=== PATIENT | male | born 1950 | race Caucasian/White ===

== ENCOUNTER 2016-07-09 21:26 | Observation (INO) | payer OTHER, MEDICARE ==
--- NOTE | 2016-07-09 21:37 | CPEKG ---
Heart Rate: 59 RR Interval: 1017 QRSD Interval: 108 QT Interval: 480 QTC Interval: 476 QRS [place]: 23 T Wave [place]: 17 EKG Severity - ABNORMAL ECG - EKG Impression: ATRIAL FIBRILLATION EKG Impression: BORDERLINE PROLONGED QT INTERVAL Electronically Signed By: Erick Patel 10-Jul-2016 00:08:31
[2016-07-09] MEDS ORDERED: NS 1,000 ML IV ONE ×2 (21:44→21:52)
--- NOTE | 2016-07-09 21:46 | EDPHY ---
H & P Time Seen by Provider: 07/09/16 21:44 HPI/ROS: Chief complaint. Syncope HPI. 65-year-old male here by EMS after having 2 syncopal episodes tonight. Patient just arrived from [place]. He was at a concert or performance felt lightheaded got up passed out. He then shortly thereafter had a never another syncopal episode. No chest discomfort or shortness of breath. He has low back pain. He is sweaty and diaphoretic and was nauseated. He really could not get up or stand. No similar symptoms previously ROS Constitutional. Generalized weakness Eyes. no problems with vision ENT. no sore throat, no nasal drainage Cardiovascular. no chest pain Respiratory. no shortness of breath, no cough Abdominal. no abdominal pain, no nausea/vomiting, no diarrhea . no problems urinating MS. Low back pain Skin. no rash Lymph. no swollen glands Neuro. Syncope Past Medical/Surgical History: Hypertension and pre atrial fibrillation Social History: , nonsmoker, no alcohol Physical Exam: General Appearance: Alert ill-appearing male with initial heart rate of 60 and blood pressure 99/54 Eyes: Pupils equal and round no pallor or injection. ENT, Mouth: Mucous membranes are moist. Respiratory: There are no retractions, lungs are clear to auscultation. Cardiovascular: Irregularly irregular rate and rhythm. Gastrointestinal: Abdomen is soft and nontender, no masses, bowel sounds normal. Neurological: Awake and alert, sensory and motor exams grossly normal. Skin: Pale and diaphoretic Musculoskeletal: Neck is supple nontender. Extremities symmetrical, full range of motion. Psychiatric: Patient is oriented X 3, there is no agitation. Constitutional: Initial Vital Signs Temperature (C) 36.5 C 07/09/16 21:26 Heart Rate 60 07/09/16 21:26 Respiratory Rate 11 L 07/09/16 21:26 Blood Pressure 99/54 L 07/09/16 21:26 O2 Sat (%) 90 L 07/09/16 21:26 O2 Delivery Mode Nasal Cannula O2 (L/minute) 2 Allergies/Adverse Reactions: No Known Allergies Allergy (Verified 07/09/16 21:59) Home Medications: Medication Instructions Recorded ENALAPRIL MALEATE 07/09/16 Medical Decision Making - Diagnostics EKG Interpretation: EKG interpreted by me shows atrial fibrillation with left axis deviation. QRS is otherwise normal there is no significant ST elevation or depression. The ventricular response is 59. We have no old EKGs for comparison Imaging Results: Imaging Impressions Chest X-Ray 07/09/16 21:44 Impression: Previous pulmonary granulomatous disease. No acute cardiopulmonary features. Chest x-ray interpreted by me is normal CT angiogram shows no evidence of pulmonary embolus. CT abdomen with IV contrast shows a normal aorta. There is diverticular disease but no evidence of diverticulitis Procedures: IV normal saline with 2 L given. roller mill tender. I-STAT revealing a creatinine 1.2 ED Course/Re-evaluation: After 2 L of fluid patient is feeling much better. His ventricular response is about 85. Blood pressure is now 144/89 Re-evaluation at 11:25 p.m.. Patient and family and I discussed imaging lab results. We discussed treatment plan. We discussed new atrial fibrillation. I recommended admission and they expressed understanding and agreement I consulted and discussed the case with Dr. Baires who sees the patient in the emergency department Differential Diagnosis: Patient is new in new onset atrial fibrillation. I considered acute coronary syndrome pulmonary embolus, abdominal aortic aneurysm as causes of his syncope. Likely this is arrival at altitude and he does tell me now that he did some marijuana this morning. May also be related to dehydration and the new AFib - Data Points Laboratory Results: Laboratory Results 07/09/16 21:45 07/09/16 21:45 07/09/16 07/09/16 07/09/16 21:53 21:45 21:45 WBC RBC Hgb POC Hgb 14.3 gm/dL L gm/dL (14.5-17.3) Hct POC Hct 42 % L % (42.8-50.6) MCV MCH MCHC RDW Plt Count MPV Neut % (Auto) Lymph % (Auto) Luna % (Auto) Eos % (Auto) Baso % (Auto) Nucleat RBC Rel Count Absolute Neuts (auto) Absolute Lymphs (auto) Absolute Monos (auto) Absolute Eos (auto) Absolute Basos (auto) Absolute Nucleated RBC Immature Gran % Immature Gran # PT INR APTT D-Dimer POC Sodium 143 mEq/L mEq/L (134-144) Sodium 138 mEq/L mEq/L (134-144) POC Potassium 3.1 mEq/L L mEq/L (3.3-5.0) Potassium 3.1 mEq/L L mEq/L (3.5-5.2) POC Chloride 103 mEq/L mEq/L (96-108) Chloride 103 mEq/L mEq/L (97-110) Carbon Dioxide 24 mEq/l mEq/l (22-31) Anion Gap 11 mEq/L mEq/L (8-16) POC BUN 21 mg/dL mg/dL (7-23) BUN 21 mg/dL mg/dL (7-23) Creatinine 1.1 mg/dL mg/dL (0.7-1.3) POC Creatinine 1.2 mg/dL mg/dL (0.8-1.5) Estimated GFR > 60 Glucose 155 mg/dL H mg/dL (70-100) POC Glucose 161 mg/dL H mg/dL (70-100) Calcium 9.1 mg/dL mg/dL (8.5-10.4) Magnesium 2.3 mg/dL mg/dL (1.6-2.3) Troponin I < 0.012 ng/mL ng/mL (0-0.034) NT-Pro-B Natriuret Pep 120 pg/mL pg/mL (0-125) 07/09/16 07/09/16 21:45 21:45 WBC 11.55 10^3/uL H 10^3/uL (3.80-9.50) RBC 4.97 10^6/uL 10^6/uL (4.40-6.38) Hgb 15.1 g/dL g/dL (13.7-17.5) POC Hgb Hct 43.9 % % (40.0-51.0) POC Hct MCV 88.3 fL fL (81.5-99.8) MCH 30.4 pg pg (27.9-34.1) MCHC 34.4 g/dL g/dL (32.4-36.7) RDW 12.7 % % (11.5-15.2) Plt Count 280 10^3/uL 10^3/uL (150-400) MPV 9.8 fL fL (8.7-11.7) Neut % (Auto) 48.8 % % (39.3-74.2) Lymph % (Auto) 40.0 % % (15.0-45.0) Luna % (Auto) 8.1 % % (4.5-13.0) Eos % (Auto) 2.5 % % (0.6-7.6) Baso % (Auto) 0.3 % % (0.3-1.7) Nucleat RBC Rel Count 0.0 % % (0.0-0.2) Absolute Neuts (auto) 5.63 10^3/uL 10^3/uL (1.70-6.50) Absolute Lymphs (auto) 4.62 10^3/uL H 10^3/uL (1.00-3.00) Absolute Monos (auto) 0.94 10^3/uL H 10^3/uL (0.30-0.80) Absolute Eos (auto) 0.29 10^3/uL 10^3/uL (0.03-0.40) Absolute Basos (auto) 0.03 10^3/uL 10^3/uL (0.02-0.10) Absolute Nucleated RBC 0.00 10^3/uL 10^3/uL (0-0.01) Immature Gran % 0.3 % % (0.0-1.1) Immature Gran # 0.04 10^3/uL 10^3/uL (0.00-0.10) PT 13.5 SEC SEC (12.0-15.0) INR 1.04 (0.83-1.16) APTT 27.0 SEC SEC (23.0-38.0) D-Dimer 0.28 ug/mLFEU ug/mLFEU (0.00-0.50) POC Sodium Sodium POC Potassium Potassium POC Chloride Chloride Carbon Dioxide Anion Gap POC BUN BUN Creatinine POC Creatinine Estimated GFR Glucose POC Glucose Calcium Magnesium Troponin I NT-Pro-B Natriuret Pep Medications Given: Discontinued Medications Sodium Chloride (Ns) 1,000 mls @ 0 mls/hr IV ONCE ONE PRN Reason: Wide Open Stop: 07/09/16 21:45 Last Admin: 07/09/16 21:58 Dose: 1,000 mls Sodium Chloride (Ns) 1,000 mls @ 0 mls/hr IV ONCE ONE PRN Reason: Wide Open Stop: 07/09/16 21:53 Last Admin: 07/09/16 22:05 Dose: 1,000 mls Point of Care Test Results: 07/09/16 21:53 POC Sodium 143 POC Potassium 3.1 L POC Chloride 103 POC BUN 21 POC Creatinine 1.2 POC Glucose 161 H Departure - Departure Disposition: [facility] Inpatient Acute Clinical Impression: Atrial fibrillation Qualifiers: Atrial fibrillation type: unspecified Qualified Code(s): I48.91 - Unspecified atrial fibrillation Syncope Qualifiers: Syncope type: unspecified Qualified Code(s): R55 - Syncope and collapse Condition: Fair Referrals: Patient,NotPresent [Unknown] - As per Instructions
[2016-07-09 21:49] LABS: % IMMATURE GRANULYOCYTES 0.3 % (0.0-1.1); ABSOLUTE IMMATURE GRANULOCYTES 0.04 10^3/uL (0.00-0.10); ADD DIFF? NO; ADD MORPH? NO; ADD SCAN? NO; ATYPICAL LYMPHOCYTE FLAG 0 (0-99); FRAGMENT RBC FLAG 0 (0-99); HEMATOCRIT 43.9 % (40.0-51.0); HEMOGLOBIN 15.1 g/dL (13.7-17.5); LEFT SHIFT FLG 0 (0-99); LIPEMIA HEMOLYSIS FLAG 90 (0-99); MEAN CELL HEMOGLOBIN 30.4 pg (27.9-34.1); MEAN CELL HEMOGLOBIN CONCENTR. 34.4 g/dL (32.4-36.7); MEAN CELL VOLUME 88.3 fL (81.5-99.8); MEAN PLATELET VOLUME 9.8 fL (8.7-11.7); PLATELET CLUMPS FLAG 10 (0-99); PLATELET COUNT 280 10^3/uL (150-400); RED BLOOD CELL COUNT 4.97 10^6/uL (4.40-6.38); RED CELL DISTRIBUTION WIDTH 12.7 % (11.5-15.2)
[2016-07-09] MEDS ORDERED: IOPAMIDOL (ISOVUE 370) 100 ML BTL IV ONE ×2 (21:49→22:19)
[2016-07-09 22:00] LABS: INR 1.04 (0.83-1.16); PROTIME(PATIENT) 13.5 SEC (12.0-15.0)
[2016-07-09 22:05] LABS: ANION GAP 11 mEq/L (8-16); CALCIUM 9.1 mg/dL (8.5-10.4); CARBON DIOXIDE 24 mEq/l (22-31); CHLORIDE 103 mEq/L (97-110); CREATININE 1.1 mg/dL (0.7-1.3); GLOMERULAR FILTRATION RATE > 60; GLUCOSE 155 mg/dL (70-100); POTASSIUM 3.1 mEq/L (3.5-5.2); SODIUM 138 mEq/L (134-144)
[2016-07-09] MEDS ORDERED: ONDANSETRON 4 MG/2 ML VIAL ONE (22:06)
[2016-07-09 22:17] LABS: TROPONIN I < 0.012 ng/mL (0-0.034)
[2016-07-09] MEDS ORDERED: oxyCODONE IR 5 MG TAB PO PRN (23:26)
[2016-07-09] MEDS ORDERED: ONDANSETRON 4 MG/2 ML VIAL IVP PRN (23:26)
[2016-07-09] MEDS ORDERED: ONDANSETRON DISINTEGRATING 4 MG TAB PO PRN (23:26)
[2016-07-09] MEDS ORDERED: ACETAMINOPHEN 325 MG TAB PO PRN (23:26)
[2016-07-09] MEDS ORDERED: NS 1,000 ML IV SCH (23:30)
[2016-07-10] MEDS ORDERED: POTASSIUM CL 20 MEQ TAB PO ONE (00:03)
--- NOTE | 2016-07-10 04:28 | PDGENHP ---
History and Physical - Chief Complaint syncope - History of Present Illness This patient was seen and evaluated on 07/09/2016. Patient is a 65-year-old male with a history of GERD who presents to the ED after a syncopal episode. patient is on vacation in [place] from [place], arrived on 07/08. He reports he did not eat or drink much on his day of travel and felt a little fatigued when he woke up this morning. He did not feel particularly short of breath and denied headache, chest pain or palpitations. This evening, he and his were at a show when he reported that he felt suddenly very hot and nauseous. He got up from his seat and when walking towards the restroom, he syncopized. This was witnessed by his , states LOC lasted seconds, and when he regained consciousness he was fully aware of his surroundings. EMS was called, and while waiting he tried to sit up and again syncopized. When EMS arrived he was noted to be somewhat hypotensive (SBP in 80- 90s), with rhythm strip showing afib. Patient denies any recent fevers, chills, cough, chest pain, palpitations, shortness of breath, vomiting, diarrhea or dysuria. He did report smoking marijuana earlier in the day today, which is something he occasionally does. He denies any significant alcohol use. He does also report having had 2 previous episodes of vasovagal syncope in his life, once in his early 20s and once about 10 years ago. Both episodes had a very similar presentation to the episode he experienced this evening. He states he's had an extensive cardiac work up done in the past, but it has been largely unrevealing. Last TTE or stress test was over 1 year ago. On arrival to the ED, patient was afebrile, slightly hypotensive, saturating at 90% on room air. Labs revealed mild leukocytosis, bmp showed hypokalemia. EKG demonstrated a slow afib, CXR was unremarkable. Given his history of recent air travel, CT chest was also obtained and negative for pulmonary embolism. He was given IVF resuscitation and admitted to the hospitalist service. History Information - Allergies/Home Medication List Allergies/Adverse Reactions: No Known Allergies Allergy (Verified 07/09/16 21:59) Home Medications: ENALAPRIL MALEATE 07/09/16 [Last Taken Unknown] I have personally reviewed and updated: family history, medical history, social history, surgical history - Past Medical History Additional medical history: HTN --> patient denies diagnosis of hypertension, states ACEI was initiated by pmd for renal protection due to family history of renal disease. GERD. IBS - Surgical History Additional surgical history: wrist - Family History Additional family history: renal disease - Social History Smoking Status: Never smoked Alcohol Use: None Drug Use: Marijuana Additional social history: Patient lives in [place], visiting [place] for vacation. Physical Exam Temp Pulse Resp BP Pulse Ox 36.5 C 92 20 147/87 H 95 07/09/16 21:26 07/10/16 00:58 07/10/16 00:58 07/10/16 00:58 07/10/16 00:58 O2 (L/minute) 2 Constitutional: no apparent distress, appears nourished, not in pain, other ( fatigued) Eyes: PERRL, anicteric sclera, EOMI Ears, Nose, Mouth, Throat: moist mucous membranes, hearing normal, ears appear normal, no oral mucosal ulcers Cardiovascular: regular rate and rhythym, no murmur, rub, or gallop, pulses symmetric bilaterally, No JVD, No edema Peripheral Pulses: 2+: dorsalis-pedis (R), dorsalis-pedis (L) Respiratory: no respiratory distress, no rales or rhonchi, clear to auscultation Gastrointestinal: normoactive bowel sounds, soft, non-tender abdomen, no palpable masses Genitourinary: no bladder fullness, no bladder tenderness Skin: warm, normal color, no rashes or abrasions, no fluctuance, no induration, No mottled Musculoskeletal: full muscle strength, no muscle tenderness, normal joint ROM, no joint effusions Neurologic: AAOx3, sensation intact bilaterally, CN II-XII Intact, No weakness, No numbness, No facial droop Psychiatric: interacting appropriately, not anxious, not encephalopathic, thought process linear Lab Data & Imaging Review 07/09/16 21:45 07/09/16 21:45 WBC 11.55 10^3/uL (3.80-9.50) H 07/09/16 21:45 RBC 4.97 10^6/uL (4.40-6.38) 07/09/16 21:45 Hgb 15.1 g/dL (13.7-17.5) 07/09/16 21:45 POC Hgb 14.3 gm/dL (14.5-17.3) L 07/09/16 21:53 Hct 43.9 % (40.0-51.0) 07/09/16 21:45 POC Hct 42 % (42.8-50.6) L 07/09/16 21:53 MCV 88.3 fL (81.5-99.8) 07/09/16 21:45 MCH 30.4 pg (27.9-34.1) 07/09/16 21:45 MCHC 34.4 g/dL (32.4-36.7) 07/09/16 21:45 RDW 12.7 % (11.5-15.2) 07/09/16 21:45 Plt Count 280 10^3/uL (150-400) 07/09/16 21:45 MPV 9.8 fL (8.7-11.7) 07/09/16 21:45 Neut % (Auto) 48.8 % (39.3-74.2) 07/09/16 21:45 Lymph % (Auto) 40.0 % (15.0-45.0) 07/09/16 21:45 [place] % (Auto) 8.1 % (4.5-13.0) 07/09/16 21:45 Eos % (Auto) 2.5 % (0.6-7.6) 07/09/16 21:45 Baso % (Auto) 0.3 % (0.3-1.7) 07/09/16 21:45 Nucleat RBC Rel Count 0.0 % (0.0-0.2) 07/09/16 21:45 Absolute Neuts (auto) 5.63 10^3/uL (1.70-6.50) 07/09/16 21:45 Absolute Lymphs (auto) 4.62 10^3/uL (1.00-3.00) H 07/09/16 21:45 Absolute Monos (auto) 0.94 10^3/uL (0.30-0.80) H 07/09/16 21:45 Absolute Eos (auto) 0.29 10^3/uL (0.03-0.40) 07/09/16 21:45 Absolute Basos (auto) 0.03 10^3/uL (0.02-0.10) 07/09/16 21:45 Absolute Nucleated RBC 0.00 10^3/uL (0-0.01) 07/09/16 21:45 Immature Gran % 0.3 % (0.0-1.1) 07/09/16 21:45 Immature Gran # 0.04 10^3/uL (0.00-0.10) 07/09/16 21:45 PT 13.5 SEC (12.0-15.0) 07/09/16 21:45 INR 1.04 (0.83-1.16) 07/09/16 21:45 APTT 27.0 SEC (23.0-38.0) 07/09/16 21:45 D-Dimer 0.28 ug/mLFEU (0.00-0.50) 07/09/16 21:45 POC Sodium 143 mEq/L (134-144) 07/09/16 21:53 Sodium 138 mEq/L (134-144) 07/09/16 21:45 POC Potassium 3.1 mEq/L (3.3-5.0) L 07/09/16 21:53 Potassium 3.1 mEq/L (3.5-5.2) L 07/09/16 21:45 POC Chloride 103 mEq/L (96-108) 07/09/16 21:53 Chloride 103 mEq/L (97-110) 07/09/16 21:45 Carbon Dioxide 24 mEq/l (22-31) 07/09/16 21:45 Anion Gap 11 mEq/L (8-16) 07/09/16 21:45 POC BUN 21 mg/dL (7-23) 07/09/16 21:53 BUN 21 mg/dL (7-23) 07/09/16 21:45 Creatinine 1.1 mg/dL (0.7-1.3) 07/09/16 21:45 POC Creatinine 1.2 mg/dL (0.8-1.5) 07/09/16 21:53 Estimated GFR > 60 07/09/16 21:45 Glucose 155 mg/dL (70-100) H 07/09/16 21:45 POC Glucose 161 mg/dL (70-100) H 07/09/16 21:53 Calcium 9.1 mg/dL (8.5-10.4) 07/09/16 21:45 Magnesium 2.3 mg/dL (1.6-2.3) 07/09/16 21:45 Troponin I < 0.012 ng/mL (0-0.034) 07/09/16 21:45 NT-Pro-B Natriuret Pep 120 pg/mL (0-125) 07/09/16 21:45 Visualized and Interpreted Chest x-ray results: Yes Chest X-Ray results: no infiltrate, normal Visualized and Interpreted imaging results: Yes Interpretation: CT chest/abd/pelvis: no pulm embolism, diverticula without inflammation Visualized and Interpreted EKG results: Yes EKG additional interpertation: afib at 59 bpm, no obvious st/twave abnormalities Assessment & Plan Assessment: patient is a 65-year-old male with a history of hypertension, GERD who presents to the ED after syncopal episode. ED evaluation reveals evidence of dehydration and his labs, hypokalemia and new onset AFib. Plan: # syncope Patient's description of the event sounds consistent with vasovagal syncope. However EKG revealed atrial fibrillation, which patient states is a new diagnosis for him. He does also feel he has been maintaining adequate p.o. intake over the past 24 hours, given he was traveling, so dehydration/ orthostasis may also be contributing. Initial troponin and EKG are not concerning for ischemia, will continue to trend both to rule out ACS. Will also continue IV fluid hydration, monitor electrolytes and check TTE in a.m. Patient is nonfocal on exam, no indication for head imaging at this time. # Atrial fibrillation patient is reporting that his health outreach worker has 1 time told him he had "pre AFib " but he was never started on any medicines for this. Current AFib may be the result of an acute dehydration and electrolyte abnormalities, or underlying paroxysmal/chronic AFib. His chads Vasc score is 1 given his age. He reports only taking enalapril for renal protection (positive family history), not for a diagnosis of hypertension. Will continue to monitor on telemetry, initiate aspirin and correct electrolytes. # hypokalemia May be contributing to arrhythmia, will place on replacement protocol. # dispo: admit to observation status for syncope # gen: cardiac diet DVT ppx; low risk Full code
[2016-07-10 05:08] LABS: % IMMATURE GRANULYOCYTES 0.4 % (0.0-1.1); ABSOLUTE IMMATURE GRANULOCYTES 0.03 10^3/uL (0.00-0.10); ADD DIFF? NO; ADD MORPH? NO; ADD SCAN? NO; ATYPICAL LYMPHOCYTE FLAG 0 (0-99); FRAGMENT RBC FLAG 0 (0-99); HEMATOCRIT 42.6 % (40.0-51.0); HEMOGLOBIN 14.7 g/dL (13.7-17.5); LEFT SHIFT FLG 10 (0-99); LIPEMIA HEMOLYSIS FLAG 90 (0-99); MEAN CELL HEMOGLOBIN 30.8 pg (27.9-34.1); MEAN CELL HEMOGLOBIN CONCENTR. 34.5 g/dL (32.4-36.7); MEAN CELL VOLUME 89.3 fL (81.5-99.8); MEAN PLATELET VOLUME 9.6 fL (8.7-11.7); PLATELET CLUMPS FLAG 0 (0-99); PLATELET COUNT 224 10^3/uL (150-400); RED BLOOD CELL COUNT 4.77 10^6/uL (4.40-6.38); RED CELL DISTRIBUTION WIDTH 12.6 % (11.5-15.2)
[2016-07-10 05:17] LABS: INR 1.07 (0.83-1.16); PROTIME(PATIENT) 13.8 SEC (12.0-15.0)
[2016-07-10 05:18] LABS: APTT 28.7 SEC (23.0-38.0)
[2016-07-10 05:27] LABS: ANION GAP 7 mEq/L (8-16); CALCIUM 9.1 mg/dL (8.5-10.4); CARBON DIOXIDE 26 mEq/l (22-31); CHLORIDE 108 mEq/L (97-110); GLOMERULAR FILTRATION RATE > 60; GLUCOSE 97 mg/dL (70-100); MAGNESIUM 2.1 mg/dL (1.6-2.3); POTASSIUM 4.5 mEq/L (3.5-5.2); SODIUM 141 mEq/L (134-144)
[2016-07-10 05:33] LABS: TROPONIN I 0.028 ng/mL (0-0.034)
--- NOTE | 2016-07-10 10:56 | ECHO ---
[id number] + + [address] : : [place] [address] : : [phone] + + Adult Echocardiographic Report + ----+ :Name: Mica FONSECA Date: 07/10/2016 10:11 AM : : Hospital Admission Number: [id number] Location: 219: :: 1950 Gender: Male Height: 67 in : :Age: 65 yrs Weight: 170 lb : :Reason For Study: Eval LV Fx : : BSA: 1.9 meters2 : :History: Syncope, Hx of HTN, A-fib : + ----+ MMode/2D Measurements \T\ Calculations IVSd: 1.2 cm LVIDd: 4.5 cm FS: 35.5 % Ao root diam: 3.5 cm LVPWd: 1.2 cm LVIDs: 2.9 cm EDV(Teich): 93.9 ml ACS: 2.2 cm ESV(Teich): 32.9 ml EF(Teich): 65.0 % Normal Measurement Values: + + :LVIDd (3.5-5.7cm) IVSd (0.6-1.1cm) LVPWd (0.6-1.1cm) Aortic Root (2.0-3.7cm)Left Atrium (1.5-4.0cm): :LV Vol(d) (76-115ml) LV Vol(s) (29-48ml) Ejec Fraction (50-65%)PV Negro (0.6- 1.2m/s) TV Negro (0.4-1.0m/s) : :MV E Negro (0.8-1.0m/s)MV A Negro (0.3-1.0m/s)LVOT Negro (0.7-1.2m/s) Asc Ao Negro ( 0.9-1.8m/s) : + + Doppler Measurements \T\ Calculations MV E max negro: Ao V2 max: LV V1 max: PA V2 max: 65.2 cm/sec 158.8 cm/sec 113.5 cm/sec 86.9 cm/sec MV A max negro: Ao max PG: LV V1 max PG: PA max P.9 cm/sec 10.1 mmHg 5.2 mmHg 3.0 mmHg MV E/A: 1.3 TR max negro: 247.0 cm/sec TR max P.4 mmHg RAP systole: 5.0 mmHg RVSP(TR): 29.4 mmHg Left Ventricle The left ventricle is normal in size and function. There is mild concentric left ventricular hypertrophy. The left ventricular ejection fraction is normal. There is Doppler evidence for diastolic dysfunction. Ejection Fraction = 65%. No regional wall motion abnormalities noted. Right Ventricle The right ventricle is normal in size and function. Atria The left atrial size is normal. Right atrial size is normal. Mitral Valve The mitral valve is normal in structure and function. There is no mitral valve stenosis. There is trace mitral regurgitation. Tricuspid Valve Normal tricuspid valve. There is trace tricuspid regurgitation. Right ventricular systolic pressure is normal. Aortic Valve The aortic valve is normal in structure and function. The aortic valve is trileaflet. There is no aortic stenosis. There is no aortic insufficiency. Pulmonic Valve The pulmonic valve is normal in structure and function. There is no pulmonic valvular regurgitation. Great Vessels The aortic root is normal size. Pericardium/Pleural There is no pericardial effusion. Conclusion A complete two-dimensional transthoracic echocardiogram was performed (2D, M-mode, Doppler and color flow Doppler). The left ventricular ejection fraction is normal. EF 65% There is Doppler evidence for diastolic dysfunction. There is mild concentric left ventricular hypertrophy. The right ventricle is normal in size and function. Trace mitral regurgitation. Trace tricuspid regurgitation. Right ventricular systolic pressure is normal. There is no pericardial effusion. Final Reading Physician: Kei Daniels signed on 07/10/2016 10:55 AM Performed By: Abisai Girard RDCS
[2016-07-10] MEDS ORDERED: ENALAPRIL MALEATE 10 MG TAB PO SCH (12:30)
[2016-07-10] MEDS ORDERED: ENALAPRIL MALEATE 20 MG TAB PO SCH (12:30)
--- NOTE | 2016-07-10 12:34 | CPEKG ---
Heart Rate: 64 RR Interval: 938 P-R Interval: 184 QRSD Interval: 90 QT Interval: 428 QTC Interval: 442 P [place]: 25 QRS [place]: 11 T Wave [place]: 56 EKG Severity - NORMAL ECG - EKG Impression: SINUS RHYTHM EKG Impression: SINUS RHYTHM HAS REPLACED ATRIAL FIB Electronically Signed By: aIn Tong 10-Jul-2016 16:34:46
[2016-07-10 12:53] VITALS: BP 159/90; PULSE 69; RESP 16; TEMP 98.4; O2SAT 95
--- NOTE | 2016-07-10 20:53 | GDS ---
[f rep st] DISCHARGE SUMMARY DISCHARGE DIAGNOSES: 1. Syncope. 2. Paroxysmal atrial fibrillation. 3. Bradycardia. 4. Hypertension. 5. Hypokalemia resolved. CONSULTANTS: Dr. Brown Conde, cardiology. IMAGING STUDIES/PROCEDURES: 1. Chest x-ray July 09 showed some prior pulmonary granulomatous disease. Otherwise, no acute cardio pulmonary abnormalities. 2. CT angiography of the chest, abdomen, and pelvis is negative for aortic aneurysm or dissection. No evidence of pulmonary emboli. Diverticulosis of the colon without diverticulitis. 3. Echocardiogram July 09 showed a normal left ventricular ejection fraction of 65%, Doppler evidence for diastolic dysfunction and mild left ventricular hypertrophy. HISTORY: For details, please see the history and physical dated July 10, 2016. In brief, the patient is a 65-year-old male with a history of hypertension and GERD who is visiting from [place] and pre sented to the emergency department after a syncopal episode, and he was admitted to the hospital for further evaluation. HOSPITAL COURSE: The patient was admitted to cardiac telemetry unit. Initial EKG revealed atrial f ibrillation with a rate in the 50s. His [id number] score is 2 based on age and hypertension. Due to his bradycardia, he did not receive any AV lilia blockers. He spontaneously converted to normal sinus rhythm and remained in sinus rhythm for most of his brief hospitalization. He had no further episodes of presyncope or syncope. He has had no chest pain, shortness of breath. PE was ruled ou t with a negative CTA. Echocardiogram was performed which revealed normal heart valves and normal e jection fraction. A repeat EKG prior to discharge confirms return of normal sinus rhythm. I discus sed with the patient stroke risk in the setting of paroxysmal atrial fibrillation and the risks and benefits of anticoagulation, including bleeding risk. The patient is agreeable to starting on Eliqu is and is given a prescription for this at discharge. I discussed the case with Cardiology and Elec trophysiology, Dr. Brown Conde, as I am a bit concerned that he presented with slow atrial fibrilla tion and has been mildly bradycardic even in sinus rhythm. After thorough review of his telemetry, he had just 1 sinus pause of 1.2 seconds, which appeared to be a conversion pause after a brief bout of AFib. He denies symptoms during that time. He currently does not have a strong indication for placement of a pacemaker, although I discussed with the patient he may ultimately require pacemaker as his syncope in the setting of slow AFib is somewhat concerning for sick sinus syndrome. He is in structed to have close followup with his supervisor [employer] upon return to [place], where he should under go cardiac event monitoring. DISPOSITION: Patient is discharged home in stable condition. DISCHARGE MEDICATIONS: Please see [facility] for complete updated outpatient medication list. [facility] dications on discharge include Eliquis 5 mg p.o. b.i.d., #60, no refills. He will continue his outp atient prescriptions for enalapril 20 mg p.o. daily. FOLLOWUP: He should follow up with his primary care physician upon arrival home in [place], as gi desir as his primary supervisor [employer]. /[id number]/MODL
== END 2016-07-10 13:34 | disposition home or self-care (01) ==
LOC: EDBD 21:26 → F2W 07-10 00:50
PROVIDERS: ADMIT Internal Medicine; ATTEND Hospitalist
PROC: B246ZZZ Ultrasonography of Right and Left Heart (ICD-10-PCS; principal; 2016-07-09)
DX: R55 Syncope and collapse (principal); I48.0 Paroxysmal atrial fibrillation; R00.1 Bradycardia, unspecified; E87.6 Hypokalemia; I10 Essential (primary) hypertension; K21.9 Gastro-esophageal reflux disease without esophagitis
CPT/HCPCS: 71275; 74177; 93005; 93306; G0378; J2405; Q9967; 82947-QW